=== PATIENT | female | born 1960 | race American Indian/Alaskan Native ===

== ENCOUNTER 2021-01-05 12:12 | Emergency (ER) | payer MEDICARE ==
[2021-01-05] MEDS ORDERED: dexAMETHasone 20 MG/5 ML VIAL IM ONE (14:14)
[2021-01-05] MEDS ORDERED: CYCLOBENZAPRINE 10 MG TAB PO ONE (14:14)
[2021-01-05] MEDS ORDERED: KETOROLAC 60 MG/2 ML INJ IM ONE (14:14)
--- NOTE | 2021-01-05 14:22 | Emergency Department Report ---
ED Back Pain/Injury HPI - General Chief Complaint: Back Pain/Injury Stated Complaint: BACK/LEG/FEET PAIN Time Seen by Provider: 01/05/21 14:14 Source: patient Limitations: No Limitations - History of Present Illness Initial Comments: Patient is a 60-year-old female presents emergency room with complaints of left lower back pain that radiates down the back of her left leg that began couple days ago. She states that the pain is worse whenever she sits on that side or with for standing up. She states that the pain increases the more she walks. She denies any fall or injury. She denies ever having this in the past. She denies any fever, abdominal pain, nausea, vomiting, diarrhea, dysuria, urinary symptoms, numbness, weakness, bowel or bladder incontinence. She states that she does experience pain with lifting up her left leg. She has a past medical history of hypertension. She denies any history of diabetes. She has an allergy to penicillin. - Related Data Previous Rx's Medication Instructions Recorded Last Taken Type Cyclobenzaprine [Flexeril] 10 mg PO BID PRN #14 tablet 01/05/21 Unknown Rx Menthol/Camphor [Donaldson Garland 1 applicatio TP BID #18 oint...g. 01/05/21 Unknown Rx Ointment] Naproxen [EC-Naprosyn] 500 mg PO BID PRN #14 tablet.dr 01/05/21 Unknown Rx Prednisone [predniSONE 10 mg 10 mg PO .TAPER #1 tab.ds.pk 01/05/21 Unknown Rx (6-Day Pack, 21 Tabs)] Allergies Allergy/AdvReac Type Severity Reaction Status Date / Time amoxicillin Allergy Unknown Verified 01/05/21 15:30 ED Review of Systems ROS: Stated complaint: BACK/LEG/FEET PAIN Other details as noted in HPI Comment: All other systems reviewed and negative ED Past Medical Hx - Past Medical History Hx Hypertension: Yes - Surgical History Additional Surgical History: left hip replacement 3 years ago - Medications Home Medications: Home Medications Medication Instructions Recorded Confirmed Last Taken Type Cyclobenzaprine [Flexeril] 10 mg PO BID PRN #14 tablet 01/05/21 Unknown Rx Menthol/Camphor [Donaldson Garland 1 applicatio TP BID #18 oint...g. 01/05/21 Unknown Rx Ointment] Naproxen [EC-Naprosyn] 500 mg PO BID PRN #14 tablet. 01/05/21 Unknown Rx Prednisone [predniSONE 10 mg 10 mg PO .TAPER #1 tab.ds.pk 01/05/21 Unknown Rx (6-Day Pack, 21 Tabs)] ED Physical Exam - General Limitations: No Limitations General appearance: alert, in no apparent distress - Head Head exam: Present: atraumatic, normocephalic - Eye Eye exam: Present: normal appearance - ENT ENT exam: Present: mucous membranes moist - Neck Neck exam: Present: normal inspection, full ROM. Absent: tenderness - Respiratory Respiratory exam: Present: normal lung sounds bilaterally. Absent: respiratory distress, wheezes, rales, rhonchi, stridor, chest wall tenderness, accessory muscle use, decreased breath sounds, prolonged expiratory - Cardiovascular Cardiovascular Exam: Present: regular rate, normal rhythm, normal heart sounds. Absent: systolic murmur, diastolic murmur, rubs, gallop - Back Exam Back exam: Present: normal inspection, full ROM, paraspinal tenderness (left sided lumbar paraspinal muscular ttp, no midline C-spine, T-spine or L-spine ttp, no step offs, no deformities, pain with SLR of the left leg). Absent: vertebral tenderness - Neurological Exam Neurological exam: Present: alert, oriented X3, CN II-XII intact, normal gait. Absent: motor sensory deficit - Psychiatric Psychiatric exam: Present: normal affect, normal mood - Skin Skin exam: Present: warm, dry, intact ED Course Vital Signs 01/05/21 01/05/21 01/05/21 13:11 15:31 15:59 Temperature 99.2 F Pulse Rate 108 H Respiratory 20 18 18 Rate Blood Pressure 148/105 185/110 [Left] O2 Sat by Pulse 97 98 Oximetry ED Medical Decision Making - Medical Decision Making Patient is a 60-year-old female presents emergency room with complaints of left lower back pain that radiates down the back of her left leg that began couple days ago. She states that the pain is worse whenever she sits on that side or with for standing up. She states that the pain increases the more she walks. She denies any fall or injury. She denies ever having this in the past. She denies any fever, abdominal pain, nausea, vomiting, diarrhea, dysuria, urinary symptoms, numbness, weakness, bowel or bladder incontinence. She states that she does experience pain with lifting up her left leg. She has a past medical history of hypertension. She denies any history of diabetes. She has an aller gy to penicillin. initial vitals are stable. On exam:left sided lumbar paraspinal muscular ttp, no midline C-spine, T-spine or L-spine ttp, no step offs, no deformities, pain with SLR of the left leg. Examination appears most consistent with sciatica versus lumbar radiculopathy. Patient has no red flag warning signs of back pain, no trauma, no unexplained weight loss, no neuro deficits, no fever, no IV drug use, no steroid use, no history of cancer. Patient given medications while in the emergency department as she did not drive and symptoms improved. Advised patientPlease use medication as prescribed. Do not drive or operate heavy machinery while taking muscle relaxer Flexeril. Use ice pack, heating pad, rest, Epsom bath. Please do the stretches for sciatica. Follow-up with a primary care doctor for reexamination. Return to emergency room for any new or worsening symptoms. Critical care attestation.: If time is entered above; I have spent that time in minutes in the direct care of this critically ill patient, excluding procedure time. ED Disposition Clinical Impression: Low back pain Qualifiers: Chronicity: acute Back pain laterality: left Sciatica presence: with sciatica Sciatica laterality: sciatica of left side Qualified Code(s): M54.42 - Lumbago with sciatica, left side Disposition: - TO HOME OR SELFCARE Is pt being admited?: No Does the pt Need Aspirin: No Condition: Stable Instructions: Sciatica Additional Instructions: Please use medication as prescribed. Do not drive or operate heavy machinery while taking muscle relaxer Flexeril. Use ice pack, heating pad, rest, Epsom bath. Please do the stretches for sciatica. Follow-up with a primary care doctor for reexamination. Return to emergency room for any new or worsening symptoms. Prescriptions: Naproxen [EC-Naprosyn] 500 mg PO BID PRN #14 tablet.dr BAUTISTA Reason: pain Cyclobenzaprine [Flexeril] 10 mg PO BID PRN #14 tablet PRN Reason: pain Prednisone [predniSONE 10 mg (6-Day Pack, 21 Tabs)] 10 mg PO .TAPER #1 tab.ds.pk Menthol/Camphor [Donaldson Garland Ointment] 1 applicatio TP BID #18 oint...g. Referrals: MANNY DEGROOT MD [Staff Physician] - 2-3 Days [facility] [Provider Group] - 2-3 Days Time of Disposition: 15:35 Print Language: TUVALU[place]
[2021-01-05 16:00] VITALS: BP 185/110
== END 2021-01-05 16:02 | disposition home or self-care (01) ==
LOC: ED 12:12
DX: M54.5 Low back pain (principal); M79.605 Pain in left leg; I10 Essential (primary) hypertension; Z98.890 Other specified postprocedural states; Z79.899 Other long term (current) drug therapy; Z88.8 Allergy status to other drugs, medicaments and biological substances
CPT/HCPCS: 96372; 99283; J1100; J1885